=== PATIENT | female | born 1970 | race Two or more races ===

== ENCOUNTER 2019-02-23 08:41 | Inpatient (IN) | payer OTHER ==
[~2019-02-23] VITALS: Ht 157.5 cm; Wt 93.0 kg
[2019-03-04] MEDS ORDERED: AVAPRO150 MG PO (11:57)
== END 2019-03-14 12:01 | disposition home or self-care (01) | DRG 743 ==
LOC: OB/GYN 03-12 06:25 → O/R 03-12 06:25 → SURH 03-12 08:30 → OB/GYN 03-12 10:54 → SURH 03-12 14:15 → OB/GYN 03-14 12:01
PROVIDERS: ADMIT Obstetrics & Gynecology Gynecologic Oncology
PROC: 0UT70ZZ Resection of Bilateral Fallopian Tubes, Open Approach (ICD-10-PCS; 2019-03-12)
PROC: 5A09457 Assistance with Respiratory Ventilation, 24-96 Consecutive Hours, Continuous Positive Airway Pressure (ICD-10-PCS; 2019-03-12)
PROC: 4A033R1 Measurement of Arterial Saturation, Peripheral, Percutaneous Approach (ICD-10-PCS; 2019-03-12)
PROC: 0UT90ZZ Resection of Uterus, Open Approach (ICD-10-PCS; principal; 2019-03-12 14:15)
DX: D25.2 Subserosal leiomyoma of uterus (principal); N72 Inflammatory disease of cervix uteri; N84.0 Polyp of corpus uteri; G47.33 Obstructive sleep apnea (adult) (pediatric); I10 Essential (primary) hypertension